=== PATIENT | female | born 1965 | race Caucasian/White ===

== ENCOUNTER 2020-04-26 11:42 | Emergency (ER) | payer OTHER ==
[~2020-04-26] VITALS: Ht 149.9 cm; Wt 60.3 kg
[2020-04-26 11:49] VITALS: BP_SYST 106
--- NOTE | 2020-04-26 11:49 | NUR ---
Patient to ER bed 3 to gown for evaluation. Side rails up. Report given to Everardo DEAN
--- NOTE | 2020-04-26 12:02 | NUR ---
ER at bedside examining patient.
--- NOTE | 2020-04-26 12:08 | NUR ---
cath lab radiological technologist at bedside to transport patient to CT scan.
--- NOTE | 2020-04-26 12:08 | NUR ---
Carmelo ruiz in [facility] - 04/26/20 at 1212 by [employer] Administrator at bedside for blood draw.
--- NOTE | 2020-04-26 12:10 | NUR ---
Pt came to ER after falling out of bed at home last night. Pt presents with R eye bruising, states she has pain on L side of head radiating down neck to shoulder rates pain 6/10. Resting in gurney comfortably, no distress noted, MD john nice.
[2020-04-26] MEDS ORDERED: DIPH-TET-PERTUS Vaccine 0.5 ML VIAL (ADACEL) I.M. ONE (12:30)
[2020-04-26] MEDS ORDERED: LIDOCAINE/EPI 2% 1:100000 20 ML VIAL INJ ONE (12:30)
[2020-04-26] MEDS ORDERED: SODIUM BICARBONATE 8.4% VIAL 50 MEQ/50 ML VIAL INJ ONE (12:30)
--- NOTE | 2020-04-26 12:31 | NUR ---
Dr. Daniel at bedside for R supraorbital laceration repair.
[2020-04-26 12:59] VITALS: BP_SYST 106
--- NOTE | 2020-04-26 13:00 | NUR ---
Patient given written and verbal discharge instructions and verbalizes understanding. ER MD discussed with patient the results and treatment provided. Patient in stable condition. ID arm band removed. Patient educated on pain management and to follow up with PMD. Pain Scale 0/10. Opportunity for questions provided and answered. Medication side effect fact sheet provided.
== END 2020-04-26 13:00 | disposition home or self-care (01) ==
LOC: SED 11:42
DX: S01.81XA Laceration without foreign body of other part of head, initial encounter (principal); Z90.49 Acquired absence of other specified parts of digestive tract; W22.8XXA Striking against or struck by other objects, initial encounter; Y93.89 Activity, other specified; Y92.89 Other specified places as the place of occurrence of the external cause; Y99.8 Other external cause status
CPT/HCPCS: 70450-TC; 71045; 90715; 93005; 99284